=== PATIENT | male | born 1955 | race African-American/Black ===

== ENCOUNTER 2016-11-02 10:12 | Inpatient (IN) | payer OTHER ==
[2016-11-02 11:33] VITALS: BMI 21.3
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
[2016-11-02] MEDS ORDERED: P-EPHED 60MG/TRIPROLIDI 2.5MG TABLET PO PRN (14:25)
[2016-11-02] MEDS ORDERED: ACETAMINOPHEN 325 MG TABLET (FP) PO PRN (14:25)
[2016-11-02] MEDS ORDERED: MENTHOL/PHENOL 1 EACH UD MM PRN (14:25)
[2016-11-02] MEDS ORDERED: MAGNESIUM CITRATE 300 ML BOTTLE PO PRN (14:25)
[2016-11-02] MEDS ORDERED: guaiFENesin/D-METHORPHAN HB 10 ML UNIT-DOSE CUPS PO PRN (14:25)
[2016-11-02] MEDS ORDERED: chlordiazePOXIDE HCL 25 MG CAPSULE PO PRN (14:25)
[2016-11-02] MEDS ORDERED: MAGNESIUM HYDROX 2400MG/30ML ORAL SUSPENSION 30 ML CUP PO PRN (14:25)
[2016-11-02] MEDS ORDERED: diphenhydrAMINE HCL 50 MG CAPSULE PO PRN (14:25)
[2016-11-02] MEDS ORDERED: MAG HYDROX/AL HYDROX/SIMETH 30 ML UNIT-DOSE CUP PO PRN (14:25)
[2016-11-02] MEDS ORDERED: hydrOXYzine PAMOATE 50 MG CAPSULE (FP) PO PRN (14:25)
[2016-11-02] MEDS ORDERED: LOPERAMIDE HCL 2 MG CAPSULE PO PRN (14:25)
[2016-11-02] MEDS ORDERED: ALBUTEROL SO4 6.7 GM HFA INHALER IH PRN (14:28)
[2016-11-02] MEDS ORDERED: LEVOTHYROXINE NA 150 MCG TABLET PO SCH (14:30)
[2016-11-02] MEDS ORDERED: LEVOTHYROXINE 100 MCG, LEVOTHYROXINE 50 MCG PO ONE (15:00)
[2016-11-02] MEDS ORDERED: chlordiazePOXIDE HCL 25 MG CAPSULE PO ONE (15:00)
[2016-11-02] MEDS ORDERED: LEVOTHYROXINE NA 25 MCG TABLET (FP) ONE (16:26)
[2016-11-02] MEDS ORDERED: LEVOTHYROXINE NA 100 MCG TABLET (FP) ONE (16:26)
[2016-11-02] MEDS ORDERED: INSULIN (NOVOLOG) ASPART 100 UNITS/ML 10ML VIAL ONE ×2 (16:26→21:58)
[2016-11-02] MEDS: IBUPROFEN 400 MG TABLET (FP) PO PRN (16:33)
[2016-11-02] MEDS: LIDOCAINE 5% TOPICAL PATCH TP SCH (16:35)
[2016-11-02] MEDS: chlordiazePOXIDE HCL 25 MG CAPSULE PO SCH ×2 (16:38→22:33)
[2016-11-02] MEDS: INSULIN SLIDING SCALE (NOVOLOG) 1 VIAL SQ SCH ×2 (16:41→22:38)
[2016-11-02 17:58] LABS: MCH 26.8 pg (25.7-33.7); MCHC 32.3 g/dl (32.0-35.9); MEAN CELL VOLUME 82.9 fl (80-96); PLATELET COUNT 423 K/MM3 (134-434); WHITE BLOOD COUNT 5.4 K/mm3 (4.0-10.0)
[2016-11-02 18:29] LABS: ALBUMIN 3.9 g/dl (3.4-5.0); ALK PHOS 86 U/L (45-117); ANION GAP 10 (8-16); BILIRUBIN,TOTAL 0.8 mg/dL (0.2-1.0); CALCIUM 9.3 mg/dL (8.5-10.1); CO2 29 mmol/L (21-32); CREATININE 1.1 mg/dL (0.7-1.3); SGOT/AST 9 U/L (15-37); SGPT/ALT 23 U/L (12-78); TOT PROT 7.3 g/dl (6.4-8.2)
[2016-11-02 18:32] LABS: GLUCOSE,RANDOM 463 mg/dL (74-106)
[2016-11-02 22:17] LABS: URINE APPEARANCE CLEAR; URINE BILIRUBIN NEGATIVE (NEGATIVE); URINE BLOOD NEGATIVE (NEGATIVE); URINE COLOR STRAW; URINE GLUCOSE (UA) 3+ (NEGATIVE); URINE KETONE 1+ (NEGATIVE); URINE LEUK ESTERASE NEGATIVE (NEGATIVE); URINE NITRITE NEGATIVE (NEGATIVE); URINE PROTEIN NEGATIVE (NEGATIVE); URINE UROBILINOGEN NEGATIVE mg/dL (0.2-1.0)
[2016-11-02] MEDS: BUDESONIDE/FORMETEROL FUMARATE 80/4.5 mcg INHALER IH SCH (22:32)
[2016-11-02] MEDS: THIAMINE HCL 100 MG TABLET (FP) PO SCH (22:33)
[2016-11-02] MEDS: RANITIDINE HCL 150 MG TABLET (FP) PO SCH (22:33)
[2016-11-02] MEDS: INSULIN DETEMIR 100 UNITS/ML MDV SQ SCH (22:37)
[2016-11-02] MEDS: LIDOCAINE PATCH REMOVAL MC SCH (22:38)
[2016-11-03] MEDS: CYCLOBENZAPRINE HCL 10 MG TABLET (FP) PO PRN (05:58)
[2016-11-03] MEDS: IBUPROFEN 400 MG TABLET (FP) PO PRN (05:58)
[2016-11-03] MEDS: chlordiazePOXIDE HCL 25 MG CAPSULE PO SCH ×4 (05:59→22:05)
[2016-11-03] MEDS ORDERED: LEVOTHYROXINE NA 25 MCG TABLET (FP) ONE (06:11)
[2016-11-03] MEDS ORDERED: LEVOTHYROXINE NA 100 MCG TABLET (FP) ONE (06:11)
[2016-11-03] MEDS: LEVOTHYROXINE 100 MCG, LEVOTHYROXINE 50 MCG PO SCH (06:23)
[2016-11-03] MEDS ORDERED: INSULIN (NOVOLOG) ASPART 100 UNITS/ML 10ML VIAL ONE ×4 (06:27→21:39)
[2016-11-03] MEDS: INSULIN SLIDING SCALE (NOVOLOG) 1 VIAL SQ SCH ×4 (06:33→22:07)
--- NOTE | 2016-11-03 10:46 | EKG ---
Test Reason : Blood Pressure : / mmHG Vent. Rate : 085 BPM Atrial Rate : 085 BPM P-R Int : 152 ms QRS Dur : 110 ms QT Int : 396 ms P-R-T Axes : 066 -69 047 degrees QTc Int : 471 ms NORMAL SINUS RHYTHM LEFT ANTERIOR FASCICULAR BLOCK SEPTAL INFARCT , AGE UNDETERMINED ABNORMAL ECG WHEN COMPARED WITH ECG OF 13-FEB-2016 11:25, SEPTAL INFARCT IS NOW PRESENT Confirmed by TRUDY OROSCO, AZAM ([id number]) on 11/03/2016 10:46:40 AM Referred By: Confirmed By:AZAM YATES MD
[2016-11-03] MEDS: BUDESONIDE/FORMETEROL FUMARATE 80/4.5 mcg INHALER IH SCH ×2 (10:57→21:51)
[2016-11-03] MEDS: PRENATAL VITAMINS W/ FOLIC ACID TABLET (FP) PO SCH (10:57)
[2016-11-03] MEDS: LIDOCAINE 5% TOPICAL PATCH TP SCH (10:57)
[2016-11-03] MEDS: RANITIDINE HCL 150 MG TABLET (FP) PO SCH ×2 (10:57→21:50)
[2016-11-03] MEDS: ALBUTEROL SO4 2.5/IPRATROPIUM 0.5 INH SOL 3 ML VIAL.NEB. NEB SCH ×4 (11:00→22:07)
--- NOTE | 2016-11-03 12:40 | PN ---
[facility] CIWA - CIWA Score Nausea/Vomitin-No Nausea/No Vomiting Muscle Tremors: 4-Moderate,w/Arms Extend Anxiety: 4-Mod. Anxious/Guarded Agitation: 4-Moderately Restless Paroxysmal Sweats: 1-Minimal Palms Moist Orientation: 0-Oriented Tacttile Disturbances: 3-Moderate Itch/Numb/Burn Auditory Disturbances: 0-None Visual Disturbances: 0-None Headache: 0-None Present CIWA-Ar Total Score: 16 S Progress Note (SOAP) Subjective: ANXIETY,SWEATS, BODY ACHES, INTERMITTENT SLEEP. Objective: 11/03/16 12:37 Vital Signs Temperature 98.3 F 11/03/16 09:38 Pulse Rate 84 11/03/16 09:38 Respiratory Rate 18 11/03/16 09:38 Blood Pressure 127/79 11/03/16 09:38 O2 Sat by Pulse Oximetry (%) Laboratory Last Values WBC 5.4 K/mm3 (4.0-10.0) 11/02/16 13:00 RBC 4.61 M/mm3 (4.00-5.60) 11/02/16 13:00 Hgb 12.3 GM/dL (11.7-16.9) 11/02/16 13:00 Hct 38.2 % (35.4-49) 11/02/16 13:00 MCV 82.9 fl (80-96) 11/02/16 13:00 MCH 26.8 pg (25.7-33.7) 11/02/16 13:00 MCHC 32.3 g/dl (32.0-35.9) 11/02/16 13:00 RDW 15.0 % (11.9-15.9) 11/02/16 13:00 Plt Count 423 K/MM3 (134-434) D 11/02/16 13:00 MPV 8.0 fl (7.5-11.1) 11/02/16 13:00 Sodium 138 mmol/L (136-145) 11/02/16 13:00 Potassium 4.5 mmol/L (3.5-5.1) 11/02/16 13:00 Chloride 99 mmol/L (98-107) 11/02/16 13:00 Carbon Dioxide 29 mmol/L (21-32) 11/02/16 13:00 Anion Gap 10 (8-16) 11/02/16 13:00 BUN 14 mg/dL (7-18) 11/02/16 13:00 Creatinine 1.1 mg/dL (0.7-1.3) D 11/02/16 13:00 Creat Clearance w eGFR > 60 (>60) 11/02/16 13:00 POC Glucometer 454 UNITS (()) 11/03/16 12:05 Random Glucose 463 mg/dL (74-106) H* D 11/02/16 13:00 Calcium 9.3 mg/dL (8.5-10.1) 11/02/16 13:00 Total Bilirubin 0.8 mg/dL (0.2-1.0) D 11/02/16 13:00 AST 9 U/L (15-37) L D 11/02/16 13:00 ALT 23 U/L (12-78) D 11/02/16 13:00 Alkaline Phosphatase 86 U/L (45-117) D 11/02/16 13:00 Total Protein 7.3 g/dl (6.4-8.2) 11/02/16 13:00 Albumin 3.9 g/dl (3.4-5.0) 11/02/16 13:00 Urine Color Straw 11/02/16 21:57 Urine Appearance Clear 11/02/16 21:57 Urine pH 5.0 (5.0-8.0) 11/02/16 21:57 Ur Specific [place] <= 1.005 (1.005-1.025) 11/02/16 21:57 Urine Protein Negative (NEGATIVE) 11/02/16 21:57 Urine Glucose (UA) 3+ (NEGATIVE) H 11/02/16 21:57 Urine Ketones 1+ (NEGATIVE) H 11/02/16 21:57 Urine Blood Negative (NEGATIVE) 11/02/16 21:57 Urine Nitrite Negative (NEGATIVE) 11/02/16 21:57 Urine Bilirubin Negative (NEGATIVE) 11/02/16 21:57 Urine Urobilinogen Negative mg/dL (0.2-1.0) 11/02/16 21:57 Ur Leukocyte Esterase Negative (NEGATIVE) 11/02/16 21:57 RPR Titer Nonreactive (NONREACTIVE) 11/02/16 13:00 Assessment: 09/06/17 12:37 WITHDRAWAL SX Plan: CONTINUE DETOX
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
[2016-11-03] MEDS: THIAMINE HCL 100 MG TABLET (FP) PO SCH (21:50)
[2016-11-03] MEDS: MIRTAZAPINE 15 MG TABLET (FP) PO SCH (21:51)
[2016-11-03] MEDS: INSULIN DETEMIR 100 UNITS/ML MDV SQ SCH (22:05)
[2016-11-03] MEDS: LIDOCAINE PATCH REMOVAL MC SCH (22:06)
[2016-11-04] MEDS ORDERED: LEVOTHYROXINE NA 100 MCG TABLET (FP) ONE (03:55)
[2016-11-04] MEDS ORDERED: LEVOTHYROXINE NA 25 MCG TABLET (FP) ONE (03:55)
[2016-11-04] MEDS: IBUPROFEN 400 MG TABLET (FP) PO PRN (06:36)
[2016-11-04] MEDS: chlordiazePOXIDE HCL 25 MG CAPSULE PO SCH ×2 (06:36→10:49)
[2016-11-04] MEDS: CYCLOBENZAPRINE HCL 10 MG TABLET (FP) PO PRN (06:37)
[2016-11-04] MEDS: LEVOTHYROXINE 100 MCG, LEVOTHYROXINE 50 MCG PO SCH (06:37)
[2016-11-04] MEDS ORDERED: INSULIN (NOVOLOG) ASPART 100 UNITS/ML 10ML VIAL ONE ×4 (07:15→21:56)
[2016-11-04] MEDS: INSULIN SLIDING SCALE (NOVOLOG) 1 VIAL SQ SCH ×4 (07:19→22:00)
[2016-11-04] MEDS: BUDESONIDE/FORMETEROL FUMARATE 80/4.5 mcg INHALER IH SCH ×2 (10:48→22:16)
[2016-11-04] MEDS: RANITIDINE HCL 150 MG TABLET (FP) PO SCH ×2 (10:49→22:15)
[2016-11-04] MEDS: PRENATAL VITAMINS W/ FOLIC ACID TABLET (FP) PO SCH (10:49)
[2016-11-04] MEDS: AMMONIUM LACTATE 12% LOTION 225 GM BOTTLE TP SCH (10:50)
[2016-11-04] MEDS: LIDOCAINE 5% TOPICAL PATCH TP SCH (10:50)
[2016-11-04] MEDS: ALBUTEROL SO4 2.5/IPRATROPIUM 0.5 INH SOL 3 ML VIAL.NEB. NEB SCH ×4 (10:51→22:35)
--- NOTE | 2016-11-04 14:35 | PN ---
S CIWA - CIWA Score Nausea/Vomitin Muscle Tremors: 4-Moderate,w/Arms Extend Anxiety: 5 Agitation: 0-Normal Activity Paroxysmal Sweats: 3 Orientation: 2-Disoriented Date<2 days Tacttile Disturbances: 0-None Auditory Disturbances: 2-Mild Harshness/Frighten Visual Disturbances: 0-None Headache: 0-None Present CIWA-Ar Total Score: 19 S Progress Note (SOAP) Subjective: Tremors, Interrupted sleep, Body Aches, Stomach Cramping, Diarrhea, Sweating. Objective: PT. A & O X 2 (DISORIENTED ABOUT DAY / DATE). NO ACUTE DISTRESS. 11/04/16 14:33 Vital Signs Temperature 97.7 F 11/04/16 13:34 Pulse Rate 102 H 11/04/16 13:34 Respiratory Rate 18 11/04/16 13:34 Blood Pressure 128/80 11/04/16 13:34 O2 Sat by Pulse Oximetry (%) Laboratory Tests 11/02/16 11/02/16 11/02/16 11:04 13:00 13:00 WBC 5.4 RBC 4.61 Hgb 12.3 Hct 38.2 MCV 82.9 MCH 26.8 MCHC 32.3 RDW 15.0 Plt Count 423 D MPV 8.0 Sodium 138 Potassium 4.5 Chloride 99 Carbon Dioxide 29 Anion Gap 10 BUN 14 Creatinine 1.1 D Creat Clearance w eGFR > 60 POC Glucometer 472 Random Glucose 463 H* D Calcium 9.3 Total Bilirubin 0.8 D AST 9 L D ALT 23 D Alkaline Phosphatase 86 D Total Protein 7.3 Albumin 3.9 Urine Color Urine Appearance Urine pH Ur Specific [place] Urine Protein Urine Glucose (UA) Urine Ketones Urine Blood Urine Nitrite Urine Bilirubin Urine Urobilinogen Ur Leukocyte Esterase RPR Titer 11/02/16 11/02/16 11/02/16 13:00 16:17 21:44 WBC RBC Hgb Hct MCV MCH MCHC RDW Plt Count MPV Sodium Potassium Chloride Carbon Dioxide Anion Gap BUN Creatinine Creat Clearance w eGFR POC Glucometer 450 420 Random Glucose Calcium Total Bilirubin AST ALT Alkaline Phosphatase Total Protein Albumin Urine Color Urine Appearance Urine pH Ur Specific [place] Urine Protein Urine Glucose (UA) Urine Ketones Urine Blood Urine Nitrite Urine Bilirubin Urine Urobilinogen Ur Leukocyte Esterase RPR Titer Nonreactive 11/02/16 11/03/16 11/03/16 21:57 06:01 12:05 WBC RBC Hgb Hct MCV MCH MCHC RDW Plt Count MPV Sodium Potassium Chloride Carbon Dioxide Anion Gap BUN Creatinine Creat Clearance w eGFR POC Glucometer 235 454 Random Glucose Calcium Total Bilirubin AST ALT Alkaline Phosphatase Total Protein Albumin Urine Color Straw Urine Appearance Clear Urine pH 5.0 Ur Specific [place] <= 1.005 Urine Protein Negative Urine Glucose (UA) 3+ H Urine Ketones 1+ H Urine Blood Negative Urine Nitrite Negative Urine Bilirubin Negative Urine Urobilinogen Negative Ur Leukocyte Esterase Negative RPR Titer 11/03/16 11/03/16 11/04/16 16:24 21:05 06:54 WBC RBC Hgb Hct MCV MCH MCHC RDW Plt Count MPV Sodium Potassium Chloride Carbon Dioxide Anion Gap BUN Creatinine Creat Clearance w eGFR POC Glucometer 363 333 448 Random Glucose Calcium Total Bilirubin AST ALT Alkaline Phosphatase Total Protein Albumin Urine Color Urine Appearance Urine pH Ur Specific [place] Urine Protein Urine Glucose (UA) Urine Ketones Urine Blood Urine Nitrite Urine Bilirubin Urine Urobilinogen Ur Leukocyte Esterase RPR Titer 11/04/16 11:02 WBC RBC Hgb Hct MCV MCH MCHC RDW Plt Count MPV Sodium Potassium Chloride Carbon Dioxide Anion Gap BUN Creatinine Creat Clearance w eGFR POC Glucometer 403 Random Glucose Calcium Total Bilirubin AST ALT Alkaline Phosphatase Total Protein Albumin Urine Color Urine Appearance Urine pH Ur Specific [place] Urine Protein Urine Glucose (UA) Urine Ketones Urine Blood Urine Nitrite Urine Bilirubin Urine Urobilinogen Ur Leukocyte Esterase RPR Titer LABS NOTED. Assessment: 11/04/16 14:34 WITHDRAWAL SYMPTOMS. Plan: CONTINUE DETOX. INCREASE DAILY PO FLUID INTAKE. ENCOURAGED PATIENT TO BE VIGILANT REGARDING DAILY CARBOHYDRATE / SUGAR INTAKE.
[2016-11-04] MEDS: chlordiazePOXIDE 5 MG CAPSULE PO SCH ×2 (17:55→23:14)
[2016-11-04] MEDS: INSULIN DETEMIR 100 UNITS/ML MDV SQ SCH (22:00)
[2016-11-04] MEDS: THIAMINE HCL 100 MG TABLET (FP) PO SCH (22:13)
[2016-11-04] MEDS: MIRTAZAPINE 15 MG TABLET (FP) PO SCH (22:15)
[2016-11-04] MEDS: LIDOCAINE PATCH REMOVAL MC SCH (22:35)
[2016-11-05] MEDS ORDERED: LEVOTHYROXINE NA 25 MCG TABLET (FP) ONE (05:24)
[2016-11-05] MEDS ORDERED: LEVOTHYROXINE NA 100 MCG TABLET (FP) ONE (05:24)
[2016-11-05] MEDS: chlordiazePOXIDE 5 MG CAPSULE PO SCH ×2 (06:14→10:56)
[2016-11-05] MEDS: LEVOTHYROXINE 100 MCG, LEVOTHYROXINE 50 MCG PO SCH (06:16)
[2016-11-05] MEDS: INSULIN SLIDING SCALE (NOVOLOG) 1 VIAL SQ SCH ×4 (07:10→21:05)
[2016-11-05] MEDS ORDERED: INSULIN (NOVOLOG) ASPART 100 UNITS/ML 10ML VIAL ONE ×4 (07:10→21:00)
[2016-11-05] MEDS: RANITIDINE HCL 150 MG TABLET (FP) PO SCH ×2 (10:56→23:22)
[2016-11-05] MEDS: BUDESONIDE/FORMETEROL FUMARATE 80/4.5 mcg INHALER IH SCH ×2 (10:56→23:22)
[2016-11-05] MEDS: PRENATAL VITAMINS W/ FOLIC ACID TABLET (FP) PO SCH (10:56)
[2016-11-05] MEDS: LIDOCAINE 5% TOPICAL PATCH TP SCH (10:57)
[2016-11-05] MEDS: AMMONIUM LACTATE 12% LOTION 225 GM BOTTLE TP SCH (10:57)
[2016-11-05] MEDS: ALBUTEROL SO4 2.5/IPRATROPIUM 0.5 INH SOL 3 ML VIAL.NEB. NEB SCH ×4 (10:57→23:19)
--- NOTE | 2016-11-05 13:11 | PN ---
[facility] Progress Note (SOAP) Subjective: Interrupted sleep, Nausea, Stomach cramping, Tremors, Sweating, Body Aches. Objective: PT. A & O X 1 (DISORIENTED ABOUT DAY /DATE AND ABOUT CURRENT LOCATION). PT. OBSERVED AMBULATING ON UNIT. NO ACUTE DISTRESS. 11/05/16 13:12 Vital Signs Temperature 98.1 F 11/05/16 11:15 Pulse Rate 78 11/05/16 11:15 Respiratory Rate 18 11/05/16 11:15 Blood Pressure 126/84 11/05/16 11:15 O2 Sat by Pulse Oximetry (%) Laboratory Tests 11/02/16 11/02/16 11/02/16 11:04 13:00 13:00 WBC 5.4 RBC 4.61 Hgb 12.3 Hct 38.2 MCV 82.9 MCH 26.8 MCHC 32.3 RDW 15.0 Plt Count 423 D MPV 8.0 Sodium 138 Potassium 4.5 Chloride 99 Carbon Dioxide 29 Anion Gap 10 BUN 14 Creatinine 1.1 D Creat Clearance w eGFR > 60 POC Glucometer 472 Random Glucose 463 H* D Calcium 9.3 Total Bilirubin 0.8 D AST 9 L D ALT 23 D Alkaline Phosphatase 86 D Total Protein 7.3 Albumin 3.9 Urine Color Urine Appearance Urine pH Ur Specific [place] Urine Protein Urine Glucose (UA) Urine Ketones Urine Blood Urine Nitrite Urine Bilirubin Urine Urobilinogen Ur Leukocyte Esterase RPR Titer 11/02/16 11/02/16 11/02/16 13:00 16:17 21:44 WBC RBC Hgb Hct MCV MCH MCHC RDW Plt Count MPV Sodium Potassium Chloride Carbon Dioxide Anion Gap BUN Creatinine Creat Clearance w eGFR POC Glucometer 450 420 Random Glucose Calcium Total Bilirubin AST ALT Alkaline Phosphatase Total Protein Albumin Urine Color Urine Appearance Urine pH Ur Specific [place] Urine Protein Urine Glucose (UA) Urine Ketones Urine Blood Urine Nitrite Urine Bilirubin Urine Urobilinogen Ur Leukocyte Esterase RPR Titer Nonreactive 11/02/16 11/03/16 11/03/16 21:57 06:01 12:05 WBC RBC Hgb Hct MCV MCH MCHC RDW Plt Count MPV Sodium Potassium Chloride Carbon Dioxide Anion Gap BUN Creatinine Creat Clearance w eGFR POC Glucometer 235 454 Random Glucose Calcium Total Bilirubin AST ALT Alkaline Phosphatase Total Protein Albumin Urine Color Straw Urine Appearance Clear Urine pH 5.0 Ur Specific [place] <= 1.005 Urine Protein Negative Urine Glucose (UA) 3+ H Urine Ketones 1+ H Urine Blood Negative Urine Nitrite Negative Urine Bilirubin Negative Urine Urobilinogen Negative Ur Leukocyte Esterase Negative RPR Titer 11/03/16 11/03/16 11/04/16 16:24 21:05 06:54 WBC RBC Hgb Hct MCV MCH MCHC RDW Plt Count MPV Sodium Potassium Chloride Carbon Dioxide Anion Gap BUN Creatinine Creat Clearance w eGFR POC Glucometer 363 333 448 Random Glucose Calcium Total Bilirubin AST ALT Alkaline Phosphatase Total Protein Albumin Urine Color Urine Appearance Urine pH Ur Specific [place] Urine Protein Urine Glucose (UA) Urine Ketones Urine Blood Urine Nitrite Urine Bilirubin Urine Urobilinogen Ur Leukocyte Esterase RPR Titer 11/04/16 11/04/16 11/05/16 11:02 16:32 06:32 WBC RBC Hgb Hct MCV MCH MCHC RDW Plt Count MPV Sodium Potassium Chloride Carbon Dioxide Anion Gap BUN Creatinine Creat Clearance w eGFR POC Glucometer 403 284 356 Random Glucose Calcium Total Bilirubin AST ALT Alkaline Phosphatase Total Protein Albumin Urine Color Urine Appearance Urine pH Ur Specific [place] Urine Protein Urine Glucose (UA) Urine Ketones Urine Blood Urine Nitrite Urine Bilirubin Urine Urobilinogen Ur Leukocyte Esterase RPR Titer 11/05/16 11:32 WBC RBC Hgb Hct MCV MCH MCHC RDW Plt Count MPV Sodium Potassium Chloride Carbon Dioxide Anion Gap BUN Creatinine Creat Clearance w eGFR POC Glucometer 448 Random Glucose Calcium Total Bilirubin AST ALT Alkaline Phosphatase Total Protein Albumin Urine Color Urine Appearance Urine pH Ur Specific [place] Urine Protein Urine Glucose (UA) Urine Ketones Urine Blood Urine Nitrite Urine Bilirubin Urine Urobilinogen Ur Leukocyte Esterase RPR Titer LABS NOTED. Assessment: 11/05/16 13:13 WITHDRAWAL SYMPTOMS. Plan: CONTINUE DETOX.
[2016-11-05] MEDS: chlordiazePOXIDE HCL 10 MG CAPSULE PO SCH ×2 (17:16→23:25)
[2016-11-05] MEDS: INSULIN DETEMIR 100 UNITS/ML MDV SQ SCH (21:06)
[2016-11-05] MEDS: THIAMINE HCL 100 MG TABLET (FP) PO SCH (23:22)
[2016-11-05] MEDS: MIRTAZAPINE 15 MG TABLET (FP) PO SCH (23:23)
[2016-11-05] MEDS: LIDOCAINE PATCH REMOVAL MC SCH (23:25)
[2016-11-06] MEDS ORDERED: LEVOTHYROXINE NA 25 MCG TABLET (FP) ONE (04:53)
[2016-11-06] MEDS ORDERED: LEVOTHYROXINE NA 100 MCG TABLET (FP) ONE (04:53)
[2016-11-06] MEDS ORDERED: INSULIN (NOVOLOG) ASPART 100 UNITS/ML 10ML VIAL ONE (06:38)
[2016-11-06] MEDS: LEVOTHYROXINE 100 MCG, LEVOTHYROXINE 50 MCG PO SCH (06:41)
[2016-11-06] MEDS: chlordiazePOXIDE HCL 10 MG CAPSULE PO SCH (06:41)
[2016-11-06] MEDS: INSULIN SLIDING SCALE (NOVOLOG) 1 VIAL SQ SCH (06:41)
[2016-11-06 07:08] VITALS: BP 122/76; PULSE 96; TEMP 97.3
[2016-11-06] MEDS: RANITIDINE HCL 150 MG TABLET (FP) PO SCH (09:33)
[2016-11-06] MEDS: PRENATAL VITAMINS W/ FOLIC ACID TABLET (FP) PO SCH (09:33)
[2016-11-06] MEDS: ALBUTEROL SO4 2.5/IPRATROPIUM 0.5 INH SOL 3 ML VIAL.NEB. NEB SCH (09:33)
[2016-11-06] MEDS: LIDOCAINE 5% TOPICAL PATCH TP SCH (09:33)
[2016-11-06] MEDS: BUDESONIDE/FORMETEROL FUMARATE 80/4.5 mcg INHALER IH SCH (09:33)
[2016-11-06] MEDS: AMMONIUM LACTATE 12% LOTION 225 GM BOTTLE TP SCH (09:33)
--- NOTE | 2016-11-07 | DS ---
[facility] Detox Discharge Summary Admission Date: 11/02/16 Discharge Date: 11/06/16 - History Present History: Alcohol Dependence, Cocaine Dependence Additional Comments: PATIENT WILL APPLY FOR ADMISSION TO [facility] ON TUESDAY (11/08/2016). PATIENT ADVISED TO CONSIDER STAYING AT [facility], [facility] ([place], [place]) TONIGHT AND TOMORROW NIGHT (11/06/2016 and 11/2016) UNTIL ABLE TO GO ON TO BE ADMITTED TO [facility]. PATIENT WAS DISCHARGED FROM DETOX UNIT IN STABLE MEDICAL CONDITION. Pertinent Past History: Hypothyroidism, History of Anemia, IDDM, Sciatica, Asthma, Insomnia, Chronic Low Back Pain. - Physical Exam Results Vital Signs: Vital Signs Temperature 97.3 F L 11/06/16 06:00 Pulse Rate 96 H 11/06/16 06:00 Respiratory Rate 18 11/06/16 06:00 Blood Pressure 122/76 11/06/16 06:00 O2 Sat by Pulse Oximetry (%) Pertinent Admission Physical Exam Findings: WITHDRAWAL SYMPTOMS. Laboratory Tests 11/02/16 11/02/16 11/02/16 11:04 13:00 13:00 WBC 5.4 RBC 4.61 Hgb 12.3 Hct 38.2 MCV 82.9 MCH 26.8 MCHC 32.3 RDW 15.0 Plt Count 423 D MPV 8.0 Sodium 138 Potassium 4.5 Chloride 99 Carbon Dioxide 29 Anion Gap 10 BUN 14 Creatinine 1.1 D Creat Clearance w eGFR > 60 POC Glucometer 472 Random Glucose 463 H* D Calcium 9.3 Total Bilirubin 0.8 D AST 9 L D ALT 23 D Alkaline Phosphatase 86 D Total Protein 7.3 Albumin 3.9 Urine Color Urine Appearance Urine pH Ur Specific [place] Urine Protein Urine Glucose (UA) Urine Ketones Urine Blood Urine Nitrite Urine Bilirubin Urine Urobilinogen Ur Leukocyte Esterase RPR Titer 11/02/16 11/02/16 11/02/16 13:00 16:17 21:44 WBC RBC Hgb Hct MCV MCH MCHC RDW Plt Count MPV Sodium Potassium Chloride Carbon Dioxide Anion Gap BUN Creatinine Creat Clearance w eGFR POC Glucometer 450 420 Random Glucose Calcium Total Bilirubin AST ALT Alkaline Phosphatase Total Protein Albumin Urine Color Urine Appearance Urine pH Ur Specific [place] Urine Protein Urine Glucose (UA) Urine Ketones Urine Blood Urine Nitrite Urine Bilirubin Urine Urobilinogen Ur Leukocyte Esterase RPR Titer Nonreactive 11/02/16 11/03/16 11/03/16 21:57 06:01 12:05 WBC RBC Hgb Hct MCV MCH MCHC RDW Plt Count MPV Sodium Potassium Chloride Carbon Dioxide Anion Gap BUN Creatinine Creat Clearance w eGFR POC Glucometer 235 454 Random Glucose Calcium Total Bilirubin AST ALT Alkaline Phosphatase Total Protein Albumin Urine Color Straw Urine Appearance Clear Urine pH 5.0 Ur Specific [place] <= 1.005 Urine Protein Negative Urine Glucose (UA) 3+ H Urine Ketones 1+ H Urine Blood Negative Urine Nitrite Negative Urine Bilirubin Negative Urine Urobilinogen Negative Ur Leukocyte Esterase Negative RPR Titer 11/03/16 11/03/16 11/04/16 16:24 21:05 06:54 WBC RBC Hgb Hct MCV MCH MCHC RDW Plt Count MPV Sodium Potassium Chloride Carbon Dioxide Anion Gap BUN Creatinine Creat Clearance w eGFR POC Glucometer 363 333 448 Random Glucose Calcium Total Bilirubin AST ALT Alkaline Phosphatase Total Protein Albumin Urine Color Urine Appearance Urine pH Ur Specific [place] Urine Protein Urine Glucose (UA) Urine Ketones Urine Blood Urine Nitrite Urine Bilirubin Urine Urobilinogen Ur Leukocyte Esterase RPR Titer 11/04/16 11/04/16 11/05/16 11:02 16:32 06:32 WBC RBC Hgb Hct MCV MCH MCHC RDW Plt Count MPV Sodium Potassium Chloride Carbon Dioxide Anion Gap BUN Creatinine Creat Clearance w eGFR POC Glucometer 403 284 356 Random Glucose Calcium Total Bilirubin AST ALT Alkaline Phosphatase Total Protein Albumin Urine Color Urine Appearance Urine pH Ur Specific [place] Urine Protein Urine Glucose (UA) Urine Ketones Urine Blood Urine Nitrite Urine Bilirubin Urine Urobilinogen Ur Leukocyte Esterase RPR Titer 11/05/16 11/05/16 11/06/16 11:32 16:37 06:36 WBC RBC Hgb Hct MCV MCH MCHC RDW Plt Count MPV Sodium Potassium Chloride Carbon Dioxide Anion Gap BUN Creatinine Creat Clearance w eGFR POC Glucometer 448 377 398 Random Glucose Calcium Total Bilirubin AST ALT Alkaline Phosphatase Total Protein Albumin Urine Color Urine Appearance Urine pH Ur Specific [place] Urine Protein Urine Glucose (UA) Urine Ketones Urine Blood Urine Nitrite Urine Bilirubin Urine Urobilinogen Ur Leukocyte Esterase RPR Titer LABS NOTED. - Treatment Hospital Course: Detox Protocol Followed, Detoxed Safely, Responded well, Discharged Condition Good Patient has Accepted a Rehab Referral to: PT. WILL GO TO [facility] FOR AFTERCARE. - Medication Discharge Medications: Ambulatory Orders Albuterol Sulfate Inhaler - [Ventolin HFA Inhaler -] 2 inh PO Q4H PRN 02/09/16 Levothyroxine [Synthroid -] 150 mcg PO DAILY 02/09/16 Insulin (Novolog) [Novolog Flexpen] 10 units SQ AC 11/02/16 Insulin Glargine,Hum.rec.anlog [Lantus Solostar PEN (NF)] 24 units SQ HS Ranitidine HCl [Zantac] 150 mg PO BID 11/02/16 Mirtazapine [Remeron -] 15 mg PO HS #30 tablet 11/03/16 - Diagnosis (1) Alcohol dependence with uncomplicated withdrawal Status: Acute (2) Cocaine dependence, uncomplicated Status: Acute (3) Insomnia Status: Acute Qualifiers: Insomnia type: unspecified Qualified Code(s): G47.00 - Insomnia, unspecified (4) Nicotine dependence Status: Chronic Qualifiers: Nicotine product type: cigarettes Substance use status: uncomplicated Qualified Code(s): F17.210 - Nicotine dependence, cigarettes, uncomplicated (5) RUQ abdominal pain Status: Acute (6) Substance induced mood disorder Status: Acute (7) Asthma Status: Chronic Qualifiers: Asthma severity: mild intermittent Asthma complication type: uncomplicated Qualified Code(s): J45.20 - Mild intermittent asthma, uncomplicated (8) COPD (chronic obstructive pulmonary disease) Status: Chronic Qualifiers: COPD type: unspecified COPD Qualified Code(s): J44.9 - Chronic obstructive pulmonary disease, unspecified (9) Chronic lower back pain Status: Chronic Qualifiers: Back pain laterality: bilateral Sciatica presence: with sciatica Sciatica laterality: sciatica of right side Qualified Code(s): M54.41 - Lumbago with sciatica, right side; G89.29 - Other chronic pain (10) Diabetes mellitus Status: Chronic Qualifiers: Diabetes mellitus type: type 2 Diabetes mellitus complication status: without complication (11) Dry skin Status: Chronic (12) Hypothyroidism Status: Chronic Qualifiers: Hypothyroidism type: acquired Qualified Code(s): E03.9 - Hypothyroidism, unspecified (13) Sciatica Status: Chronic Qualifiers: Laterality: right Qualified Code(s): M54.31 - Sciatica, right side - AMA Did Patient Leave Against Medical Advice: No
== END 2016-11-06 09:35 | disposition home or self-care (01) | DRG 774 ==
LOC: YASAS 10:12 → Y3N 14:06
PROVIDERS: ADMIT Internal Medicine Addiction Medicine; ATTEND Internal Medicine Addiction Medicine
PROC: HZ2ZZZZ Detoxification Services for Substance Abuse Treatment (ICD-10-PCS; principal; 2016-11-02)
DX: F10.230 Alcohol dependence with withdrawal, uncomplicated (principal); F14.20 Cocaine dependence, uncomplicated; F17.210 Nicotine dependence, cigarettes, uncomplicated; F19.24 Other psychoactive substance dependence with psychoactive substance-induced mood disorder; G47.00 Insomnia, unspecified; J45.20 Mild intermittent asthma, uncomplicated; J44.9 Chronic obstructive pulmonary disease, unspecified; M54.41 Lumbago with sciatica, right side; G89.29 Other chronic pain; E11.9 Type 2 diabetes mellitus without complications; L98.8 Other specified disorders of the skin and subcutaneous tissue; E03.9 Hypothyroidism, unspecified; I69.344 Monoplegia of lower limb following cerebral infarction affecting left non-dominant side; R26.81 Unsteadiness on feet; Z87.828 Personal history of other (healed) physical injury and trauma; Z86.39 Personal history of other endocrine, nutritional and metabolic disease; Z86.2 Personal history of diseases of the blood and blood-forming organs and certain disorders involving the immune mechanism; Z79.4 Long term (current) use of insulin; Z91.5 Personal history of self-harm; R10.11 Right upper quadrant pain
CPT/HCPCS: 36415; 80053; 81003; 85027; 86593; 93005; 93010

== ENCOUNTER 2022-04-07 10:23 | Inpatient (IN) | payer OTHER ==
[2022-04-07] MEDS ORDERED: hydrOXYzine PAMOATE 25 MG CAPSULE (FP) PO PRN (13:28)
[2022-04-07] MEDS ORDERED: ACETAMINOPHEN 325 MG TABLET (FP) PO PRN (13:28)
[2022-04-07] MEDS ORDERED: POLYETHYLENE GLYCOL (HEALTHYLAX) 3350 17 GM PACKET PO PRN (13:28)
[2022-04-07] MEDS ORDERED: BENZOCAINE/MENTHOL (CHLORASEPTIC ) LOZENGE MM PRN (13:28)
[2022-04-07] MEDS ORDERED: guaiFENesin 200 MG/10 ML 10 ML UNIT-DOSE CUPS PO PRN (13:28)
[2022-04-07] MEDS ORDERED: MAGNESIUM HYDROX 2400MG/30ML ORAL SUSPENSION 30 ML CUP PO PRN (13:28)
[2022-04-07] MEDS ORDERED: P-EPHED 60MG/TRIPROLIDI 2.5MG TABLET PO PRN (13:28)
[2022-04-07] MEDS ORDERED: NICOTINE 10 MG CARTRIDGE (INHALER) IH PRN (13:28)
[2022-04-07] MEDS ORDERED: LOPERAMIDE HCL 2 MG CAPSULE PO PRN (13:28)
[2022-04-07] MEDS ORDERED: ALBUTEROL SO4 HFA INHALER IH PRN (13:31)
[2022-04-07] MEDS ORDERED: LEVOTHYROXINE NA 150 MCG TABLET PO SCH (13:45)
[2022-04-07] MEDS ORDERED: INSULIN (NOVOLOG) ASPART 100 UNITS/ML 10ML VIAL ONE ×2 (13:48→21:41)
[2022-04-07] MEDS: PRENATAL VITAMINS W/ FOLIC ACID TABLET (FP) PO SCH (14:42)
[2022-04-07] MEDS ORDERED: INSULIN (NOVOLOG) ASPART 100 UNITS/ML 10ML VIAL SQ ONE (15:19)
[2022-04-07] MEDS ORDERED: INSULIN (NOVOLOG) ASPART 100 UNITS/ML 10ML VIAL SQ SCH (16:30)
[2022-04-07] MEDS: LEVOTHYROXINE 100 MCG, LEVOTHYROXINE 50 MCG PO SCH (16:45)
[2022-04-07] MEDS: FAMOTIDINE 20 MG TABLET PO SCH ×2 (16:47→21:11)
[2022-04-07] MEDS: NICOTINE 7 MG/24 HOURS TOPICAL PATCH TD SCH (16:47)
[2022-04-07] MEDS: THIAMINE HCL 100 MG TABLET (FP) PO SCH (21:10)
[2022-04-07] MEDS: MELATONIN 5 MG TABLETS PO SCH (21:10)
[2022-04-07] MEDS ORDERED: INSULIN (LEVEMIR) 100 UNITS/ML UNITS SQ SCH (22:00)
[2022-04-08] MEDS: INSULIN SLIDING SCALE (NOVOLOG) 1 VIAL SQ SCH ×3 (07:22→17:25)
[2022-04-08] MEDS: LEVOTHYROXINE 100 MCG, LEVOTHYROXINE 50 MCG PO SCH (07:22)
[2022-04-08] MEDS: FAMOTIDINE 20 MG TABLET PO SCH ×2 (10:54→22:43)
[2022-04-08] MEDS: NICOTINE 7 MG/24 HOURS TOPICAL PATCH TD SCH (10:58)
[2022-04-08] MEDS: PRENATAL VITAMINS W/ FOLIC ACID TABLET (FP) PO SCH (10:58)
[2022-04-08 12:17] LABS: PH,URINE 5.5 (5.0-8.0); URINE APPEARANCE CLEAR; URINE BILIRUBIN NEGATIVE (NEGATIVE); URINE COLOR YELLOW; URINE GLUCOSE (UA) TRACE (NEGATIVE); URINE KETONE NEGATIVE (NEGATIVE); URINE LEUK ESTERASE NEGATIVE (NEGATIVE); URINE NITRITE NEGATIVE (NEGATIVE); URINE PROTEIN NEGATIVE (NEGATIVE); URINE UROBILINOGEN 0.2 mg/dL (0.2-1.0)
[2022-04-08 12:25] LABS: HEMATOCRIT 29.4 % (35.4-49); HEMOGLOBIN 9.8 GM/dL (11.7-16.9); MCH 27.4 pg (25.7-33.7); MCHC 33.3 g/dl (32.0-35.9); MEAN CELL VOLUME 82.4 fl (80-96); MEAN PLT VOLUME 7.9 fl (7.5-11.1); PLATELET COUNT 337 10^3/uL (134-434); RBC 3.57 M/mm3 (4.00-5.60); RDW 17.3 % (11.9-15.9); WHITE BLOOD COUNT 5.8 K/mm3 (4.0-10.0)
[2022-04-08] MEDS ORDERED: INSULIN SLIDING SCALE (NOVOLOG) 1 VIAL SQ ONE (12:27)
[2022-04-08 12:37] LABS: CALCIUM 8.8 mg/dL (8.5-10.1)
[2022-04-08 12:38] LABS: ALBUMIN 3.1 g/dl (3.4-5.0); BLOOD UREA NITROGEN 12.3 mg/dL (7-18); TOT PROT 6.1 g/dl (6.4-8.2)
[2022-04-08 12:39] LABS: CREATININE 0.9 mg/dL (0.55-1.3)
[2022-04-08 12:40] LABS: BILIRUBIN,TOTAL 0.7 mg/dL (0.2-1)
[2022-04-08] MEDS: MELATONIN 5 MG TABLETS PO SCH (22:43)
[2022-04-08] MEDS: MIRTAZAPINE 15 MG TABLET (FP) PO SCH (22:43)
[2022-04-08] MEDS: THIAMINE HCL 100 MG TABLET (FP) PO SCH (22:43)
[2022-04-08] MEDS: INSULIN (LEVEMIR) 100 UNITS/ML UNITS SQ SCH (22:47)
[2022-04-09] MEDS: LEVOTHYROXINE 100 MCG, LEVOTHYROXINE 50 MCG PO SCH (06:35)
[2022-04-09] MEDS: INSULIN SLIDING SCALE (NOVOLOG) 1 VIAL SQ SCH ×3 (08:03→16:55)
[2022-04-09] MEDS ORDERED: SYNTHROID 175 MCG PO SCH (10:00)
[2022-04-09] MEDS: PRENATAL VITAMINS W/ FOLIC ACID TABLET (FP) PO SCH (10:32)
[2022-04-09] MEDS: NICOTINE 7 MG/24 HOURS TOPICAL PATCH TD SCH (10:32)
[2022-04-09] MEDS: FAMOTIDINE 20 MG TABLET PO SCH ×2 (10:33→21:22)
[2022-04-09] MEDS: amLODIPine BESYLATE 10 MG TABLET (FP) PO SCH (10:34)
[2022-04-09] MEDS: GABAPENTIN 100 MG CAPSULE PO SCH ×2 (13:32→21:22)
[2022-04-09 21:01] LABS: SYPHILIS W/ RPR CONF NON-REACTIVE (NONREACTIVE)
[2022-04-09] MEDS: MIRTAZAPINE 15 MG TABLET (FP) PO SCH (21:22)
[2022-04-09] MEDS: THIAMINE HCL 100 MG TABLET (FP) PO SCH (21:22)
[2022-04-09] MEDS: MELATONIN 5 MG TABLETS PO SCH (21:22)
[2022-04-09] MEDS: ATORVASTATIN CA 80 MG TABLET (FP) PO SCH (21:23)
[2022-04-09] MEDS ORDERED: ATORVASTATIN CA 40 MG TABLET (FP) ONE (21:23)
[2022-04-09] MEDS: INSULIN (LEVEMIR) 100 UNITS/ML UNITS SQ SCH (21:24)
[2022-04-10] MEDS: GABAPENTIN 100 MG CAPSULE PO SCH ×3 (06:43→21:16)
[2022-04-10] MEDS: LEVOTHYROXINE 100 MCG, LEVOTHYROXINE 75 MCG PO SCH (06:43)
[2022-04-10] MEDS ORDERED: LEVOTHYROXINE NA 50 MCG TABLET (FP) PO SCH (07:00)
[2022-04-10] MEDS: INSULIN SLIDING SCALE (NOVOLOG) 1 VIAL SQ SCH ×3 (07:08→16:58)
[2022-04-10] MEDS: FAMOTIDINE 20 MG TABLET PO SCH ×2 (10:06→21:16)
[2022-04-10] MEDS: amLODIPine BESYLATE 10 MG TABLET (FP) PO SCH (10:06)
[2022-04-10] MEDS: NICOTINE 7 MG/24 HOURS TOPICAL PATCH TD SCH (10:06)
[2022-04-10] MEDS: PRENATAL VITAMINS W/ FOLIC ACID TABLET (FP) PO SCH (10:06)
[2022-04-10] MEDS ORDERED: ATORVASTATIN CA 40 MG TABLET (FP) ONE (18:32)
[2022-04-10] MEDS: INSULIN (LEVEMIR) 100 UNITS/ML UNITS SQ SCH (21:16)
[2022-04-10] MEDS: THIAMINE HCL 100 MG TABLET (FP) PO SCH (21:16)
[2022-04-10] MEDS: MELATONIN 5 MG TABLETS PO SCH (21:16)
[2022-04-10] MEDS: ATORVASTATIN CA 80 MG TABLET (FP) PO SCH (21:16)
[2022-04-10] MEDS: MIRTAZAPINE 15 MG TABLET (FP) PO SCH (21:16)
[2022-04-11] MEDS: GABAPENTIN 100 MG CAPSULE PO SCH ×3 (06:34→21:09)
[2022-04-11] MEDS: LEVOTHYROXINE 100 MCG, LEVOTHYROXINE 75 MCG PO SCH (06:34)
[2022-04-11] MEDS: INSULIN SLIDING SCALE (NOVOLOG) 1 VIAL SQ SCH ×3 (07:05→17:00)
[2022-04-11] MEDS: amLODIPine BESYLATE 10 MG TABLET (FP) PO SCH (09:56)
[2022-04-11] MEDS: PRENATAL VITAMINS W/ FOLIC ACID TABLET (FP) PO SCH (09:56)
[2022-04-11] MEDS: FAMOTIDINE 20 MG TABLET PO SCH ×2 (09:56→22:28)
[2022-04-11] MEDS: NICOTINE 7 MG/24 HOURS TOPICAL PATCH TD SCH (09:56)
[2022-04-11] MEDS: ATORVASTATIN CA 80 MG TABLET (FP) PO SCH (21:09)
[2022-04-11] MEDS: INSULIN (LEVEMIR) 100 UNITS/ML UNITS SQ SCH (21:09)
[2022-04-11] MEDS: THIAMINE HCL 100 MG TABLET (FP) PO SCH (21:09)
[2022-04-11] MEDS: MELATONIN 5 MG TABLETS PO SCH (21:09)
[2022-04-11] MEDS: MIRTAZAPINE 15 MG TABLET (FP) PO SCH (21:09)
[2022-04-12] MEDS: LEVOTHYROXINE 100 MCG, LEVOTHYROXINE 75 MCG PO SCH (06:34)
[2022-04-12] MEDS: GABAPENTIN 100 MG CAPSULE PO SCH ×3 (06:34→21:02)
[2022-04-12] MEDS: INSULIN SLIDING SCALE (NOVOLOG) 1 VIAL SQ SCH ×3 (07:39→17:09)
[2022-04-12] MEDS: FAMOTIDINE 20 MG TABLET PO SCH ×2 (10:43→21:02)
[2022-04-12] MEDS: amLODIPine BESYLATE 10 MG TABLET (FP) PO SCH (10:43)
[2022-04-12] MEDS: NICOTINE 7 MG/24 HOURS TOPICAL PATCH TD SCH (10:43)
[2022-04-12] MEDS: PRENATAL VITAMINS W/ FOLIC ACID TABLET (FP) PO SCH (10:43)
[2022-04-12] MEDS ORDERED: ATORVASTATIN CA 40 MG TABLET (FP) ONE (18:54)
[2022-04-12] MEDS: THIAMINE HCL 100 MG TABLET (FP) PO SCH (21:03)
[2022-04-12] MEDS: INSULIN (LEVEMIR) 100 UNITS/ML UNITS SQ SCH (21:03)
[2022-04-12] MEDS: MIRTAZAPINE 15 MG TABLET (FP) PO SCH (21:03)
[2022-04-12] MEDS: ATORVASTATIN CA 80 MG TABLET (FP) PO SCH (21:03)
[2022-04-12] MEDS: MELATONIN 5 MG TABLETS PO SCH (21:03)
[2022-04-13] MEDS: LEVOTHYROXINE 100 MCG, LEVOTHYROXINE 75 MCG PO SCH (06:30)
[2022-04-13] MEDS: GABAPENTIN 100 MG CAPSULE PO SCH ×3 (06:30→21:09)
[2022-04-13] MEDS: INSULIN SLIDING SCALE (NOVOLOG) 1 VIAL SQ SCH ×3 (06:53→17:22)
[2022-04-13] MEDS: amLODIPine BESYLATE 10 MG TABLET (FP) PO SCH (10:01)
[2022-04-13] MEDS: FAMOTIDINE 20 MG TABLET PO SCH ×2 (10:01→21:09)
[2022-04-13] MEDS: PRENATAL VITAMINS W/ FOLIC ACID TABLET (FP) PO SCH (10:01)
[2022-04-13] MEDS: NICOTINE 7 MG/24 HOURS TOPICAL PATCH TD SCH (10:01)
[2022-04-13] MEDS ORDERED: ATORVASTATIN CA 40 MG TABLET (FP) ONE (18:35)
[2022-04-13] MEDS: ATORVASTATIN CA 80 MG TABLET (FP) PO SCH (21:09)
[2022-04-13] MEDS: MELATONIN 5 MG TABLETS PO SCH (21:09)
[2022-04-13] MEDS: THIAMINE HCL 100 MG TABLET (FP) PO SCH (21:09)
[2022-04-13] MEDS: MIRTAZAPINE 15 MG TABLET (FP) PO SCH (21:09)
[2022-04-13] MEDS: INSULIN (LEVEMIR) 100 UNITS/ML UNITS SQ SCH (21:11)
[2022-04-14] MEDS: GABAPENTIN 100 MG CAPSULE PO SCH ×3 (06:23→21:15)
[2022-04-14] MEDS: LEVOTHYROXINE 100 MCG, LEVOTHYROXINE 75 MCG PO SCH (06:23)
[2022-04-14] MEDS: INSULIN SLIDING SCALE (NOVOLOG) 1 VIAL SQ SCH ×3 (06:53→16:29)
[2022-04-14] MEDS: amLODIPine BESYLATE 10 MG TABLET (FP) PO SCH (10:22)
[2022-04-14] MEDS: FAMOTIDINE 20 MG TABLET PO SCH ×2 (10:22→21:14)
[2022-04-14] MEDS: PRENATAL VITAMINS W/ FOLIC ACID TABLET (FP) PO SCH (10:22)
[2022-04-14] MEDS: NICOTINE 7 MG/24 HOURS TOPICAL PATCH TD SCH (10:23)
[2022-04-14] MEDS ORDERED: ATORVASTATIN CA 40 MG TABLET (FP) ONE (19:26)
[2022-04-14] MEDS: MELATONIN 5 MG TABLETS PO SCH (21:14)
[2022-04-14] MEDS: MIRTAZAPINE 15 MG TABLET (FP) PO SCH (21:14)
[2022-04-14] MEDS: THIAMINE HCL 100 MG TABLET (FP) PO SCH (21:14)
[2022-04-14] MEDS: ATORVASTATIN CA 80 MG TABLET (FP) PO SCH (21:15)
[2022-04-14] MEDS: INSULIN (LEVEMIR) 100 UNITS/ML UNITS SQ SCH (21:16)
[2022-04-15] MEDS: LEVOTHYROXINE 100 MCG, LEVOTHYROXINE 75 MCG PO SCH (06:43)
[2022-04-15] MEDS: GABAPENTIN 100 MG CAPSULE PO SCH ×3 (06:43→21:25)
[2022-04-15] MEDS: INSULIN SLIDING SCALE (NOVOLOG) 1 VIAL SQ SCH ×4 (06:45→17:11)
[2022-04-15] MEDS: NICOTINE 7 MG/24 HOURS TOPICAL PATCH TD SCH (10:08)
[2022-04-15] MEDS: FAMOTIDINE 20 MG TABLET PO SCH ×2 (10:08→21:26)
[2022-04-15] MEDS: amLODIPine BESYLATE 10 MG TABLET (FP) PO SCH (10:08)
[2022-04-15] MEDS: PRENATAL VITAMINS W/ FOLIC ACID TABLET (FP) PO SCH (10:08)
[2022-04-15] MEDS: IBUPROFEN 400 MG TABLET (FP) PO PRN (13:34)
[2022-04-15] MEDS ORDERED: INSULIN SLIDING SCALE (NOVOLOG) 1 VIAL SQ ONE (13:45)
[2022-04-15] MEDS ORDERED: ATORVASTATIN CA 40 MG TABLET (FP) ONE (19:10)
[2022-04-15] MEDS: ATORVASTATIN CA 80 MG TABLET (FP) PO SCH (21:25)
[2022-04-15] MEDS: INSULIN (LEVEMIR) 100 UNITS/ML UNITS SQ SCH (21:26)
[2022-04-15] MEDS: THIAMINE HCL 100 MG TABLET (FP) PO SCH (21:26)
[2022-04-15] MEDS: MELATONIN 5 MG TABLETS PO SCH (21:26)
[2022-04-15] MEDS: MIRTAZAPINE 15 MG TABLET (FP) PO SCH (21:26)
[2022-04-15] MEDS ORDERED: INSULIN (NOVOLOG) ASPART 100 UNITS/ML 10ML VIAL SQ ONE (21:50)
[2022-04-16] MEDS: GABAPENTIN 100 MG CAPSULE PO SCH ×3 (06:28→21:14)
[2022-04-16] MEDS: LEVOTHYROXINE 100 MCG, LEVOTHYROXINE 75 MCG PO SCH (06:28)
[2022-04-16] MEDS: INSULIN SLIDING SCALE (NOVOLOG) 1 VIAL SQ SCH ×3 (06:37→16:33)
[2022-04-16] MEDS: NICOTINE 7 MG/24 HOURS TOPICAL PATCH TD SCH (10:11)
[2022-04-16] MEDS: FAMOTIDINE 20 MG TABLET PO SCH ×2 (10:12→21:14)
[2022-04-16] MEDS: PRENATAL VITAMINS W/ FOLIC ACID TABLET (FP) PO SCH (10:12)
[2022-04-16] MEDS: amLODIPine BESYLATE 10 MG TABLET (FP) PO SCH (10:13)
[2022-04-16] MEDS ORDERED: INSULIN SLIDING SCALE (NOVOLOG) 1 VIAL SQ ONE (14:00)
[2022-04-16] MEDS ORDERED: ATORVASTATIN CA 40 MG TABLET (FP) ONE (18:29)
[2022-04-16] MEDS: MELATONIN 5 MG TABLETS PO SCH (21:14)
[2022-04-16] MEDS: MIRTAZAPINE 15 MG TABLET (FP) PO SCH (21:14)
[2022-04-16] MEDS: THIAMINE HCL 100 MG TABLET (FP) PO SCH (21:14)
[2022-04-16] MEDS: ATORVASTATIN CA 80 MG TABLET (FP) PO SCH (21:14)
[2022-04-16] MEDS: IBUPROFEN 400 MG TABLET (FP) PO PRN (21:15)
[2022-04-16] MEDS: INSULIN (LEVEMIR) 100 UNITS/ML UNITS SQ SCH (21:17)
[2022-04-17] MEDS: GABAPENTIN 100 MG CAPSULE PO SCH ×3 (06:33→21:19)
[2022-04-17] MEDS: LEVOTHYROXINE 100 MCG, LEVOTHYROXINE 75 MCG PO SCH (06:33)
[2022-04-17] MEDS: INSULIN SLIDING SCALE (NOVOLOG) 1 VIAL SQ SCH ×2 (06:40→10:12)
[2022-04-17] MEDS: NICOTINE 7 MG/24 HOURS TOPICAL PATCH TD SCH (10:07)
[2022-04-17] MEDS: PRENATAL VITAMINS W/ FOLIC ACID TABLET (FP) PO SCH (10:07)
[2022-04-17] MEDS: amLODIPine BESYLATE 10 MG TABLET (FP) PO SCH (10:07)
[2022-04-17] MEDS: FAMOTIDINE 20 MG TABLET PO SCH ×2 (10:07→21:19)
[2022-04-17] MEDS: IBUPROFEN 400 MG TABLET (FP) PO PRN (10:08)
[2022-04-17] MEDS ORDERED: ATORVASTATIN CA 40 MG TABLET (FP) ONE (18:48)
[2022-04-17] MEDS: ATORVASTATIN CA 80 MG TABLET (FP) PO SCH (21:19)
[2022-04-17] MEDS: MIRTAZAPINE 15 MG TABLET (FP) PO SCH (21:19)
[2022-04-17] MEDS: MELATONIN 5 MG TABLETS PO SCH (21:19)
[2022-04-17] MEDS: THIAMINE HCL 100 MG TABLET (FP) PO SCH (21:20)
[2022-04-17] MEDS: INSULIN (LEVEMIR) 100 UNITS/ML UNITS SQ SCH (21:21)
[2022-04-18] MEDS: LEVOTHYROXINE 100 MCG, LEVOTHYROXINE 75 MCG PO SCH (06:33)
[2022-04-18] MEDS: GABAPENTIN 100 MG CAPSULE PO SCH ×3 (06:33→21:17)
[2022-04-18] MEDS: INSULIN SLIDING SCALE (NOVOLOG) 1 VIAL SQ SCH ×3 (06:53→17:12)
[2022-04-18] MEDS: FAMOTIDINE 20 MG TABLET PO SCH ×2 (10:12→21:17)
[2022-04-18] MEDS: amLODIPine BESYLATE 10 MG TABLET (FP) PO SCH (10:12)
[2022-04-18] MEDS: NICOTINE 7 MG/24 HOURS TOPICAL PATCH TD SCH (10:12)
[2022-04-18] MEDS: PRENATAL VITAMINS W/ FOLIC ACID TABLET (FP) PO SCH (10:12)
[2022-04-18] MEDS ORDERED: INSULIN SLIDING SCALE (NOVOLOG) 1 VIAL SQ ONE (12:04)
[2022-04-18] MEDS ORDERED: ATORVASTATIN CA 20 MG TABLET (FP) ONE (18:30)
[2022-04-18] MEDS: MIRTAZAPINE 15 MG TABLET (FP) PO SCH (21:17)
[2022-04-18] MEDS: MELATONIN 5 MG TABLETS PO SCH (21:17)
[2022-04-18] MEDS: THIAMINE HCL 100 MG TABLET (FP) PO SCH (21:17)
[2022-04-18] MEDS: ATORVASTATIN CA 80 MG TABLET (FP) PO SCH (21:17)
[2022-04-18] MEDS: INSULIN (LEVEMIR) 100 UNITS/ML UNITS SQ SCH (21:19)
[2022-04-19] MEDS: LEVOTHYROXINE 100 MCG, LEVOTHYROXINE 75 MCG PO SCH (06:08)
[2022-04-19] MEDS: GABAPENTIN 100 MG CAPSULE PO SCH ×3 (06:09→21:05)
[2022-04-19] MEDS: INSULIN SLIDING SCALE (NOVOLOG) 1 VIAL SQ SCH ×3 (07:05→16:28)
[2022-04-19] MEDS: NICOTINE 7 MG/24 HOURS TOPICAL PATCH TD SCH (09:56)
[2022-04-19] MEDS: PRENATAL VITAMINS W/ FOLIC ACID TABLET (FP) PO SCH (09:56)
[2022-04-19] MEDS: amLODIPine BESYLATE 10 MG TABLET (FP) PO SCH (09:56)
[2022-04-19] MEDS: FERROUS SO4 325 MG TABLET (FP) PO SCH ×2 (09:56→21:06)
[2022-04-19] MEDS: FAMOTIDINE 20 MG TABLET PO SCH ×2 (09:56→21:06)
[2022-04-19] MEDS ORDERED: ATORVASTATIN CA 40 MG TABLET (FP) ONE (19:08)
[2022-04-19] MEDS: THIAMINE HCL 100 MG TABLET (FP) PO SCH (21:05)
[2022-04-19] MEDS: MELATONIN 5 MG TABLETS PO SCH (21:05)
[2022-04-19] MEDS: MIRTAZAPINE 15 MG TABLET (FP) PO SCH (21:05)
[2022-04-19] MEDS: INSULIN (LEVEMIR) 100 UNITS/ML UNITS SQ SCH (21:09)
[2022-04-19] MEDS: ATORVASTATIN CA 80 MG TABLET (FP) PO SCH (21:09)
[2022-04-20] MEDS: LEVOTHYROXINE 100 MCG, LEVOTHYROXINE 75 MCG PO SCH (05:58)
[2022-04-20] MEDS: GABAPENTIN 100 MG CAPSULE PO SCH ×3 (06:00→21:49)
[2022-04-20] MEDS: INSULIN SLIDING SCALE (NOVOLOG) 1 VIAL SQ SCH ×3 (07:05→16:57)
[2022-04-20] MEDS: FAMOTIDINE 20 MG TABLET PO SCH ×2 (10:00→21:49)
[2022-04-20] MEDS: FERROUS SO4 325 MG TABLET (FP) PO SCH ×2 (10:00→21:49)
[2022-04-20] MEDS: NICOTINE 7 MG/24 HOURS TOPICAL PATCH TD SCH (10:00)
[2022-04-20] MEDS: amLODIPine BESYLATE 10 MG TABLET (FP) PO SCH (10:00)
[2022-04-20] MEDS: PRENATAL VITAMINS W/ FOLIC ACID TABLET (FP) PO SCH (10:00)
[2022-04-20] MEDS ORDERED: INSULIN (NOVOLOG) ASPART 100 UNITS/ML 10ML VIAL SQ ONE ×2 (16:48→21:45)
[2022-04-20] MEDS ORDERED: ATORVASTATIN CA 40 MG TABLET (FP) ONE (20:55)
[2022-04-20] MEDS: INSULIN (LEVEMIR) 100 UNITS/ML UNITS SQ SCH (21:48)
[2022-04-20] MEDS: MELATONIN 5 MG TABLETS PO SCH (21:48)
[2022-04-20] MEDS: THIAMINE HCL 100 MG TABLET (FP) PO SCH (21:49)
[2022-04-20] MEDS: MIRTAZAPINE 15 MG TABLET (FP) PO SCH (21:49)
[2022-04-20] MEDS: ATORVASTATIN CA 80 MG TABLET (FP) PO SCH (21:49)
[2022-04-21] MEDS: GABAPENTIN 100 MG CAPSULE PO SCH ×3 (06:26→21:01)
[2022-04-21] MEDS: LEVOTHYROXINE 100 MCG, LEVOTHYROXINE 75 MCG PO SCH (06:26)
[2022-04-21] MEDS: INSULIN SLIDING SCALE (NOVOLOG) 1 VIAL SQ SCH ×3 (06:44→16:38)
[2022-04-21] MEDS: FAMOTIDINE 20 MG TABLET PO SCH ×2 (09:51→21:00)
[2022-04-21] MEDS: NICOTINE 7 MG/24 HOURS TOPICAL PATCH TD SCH (09:51)
[2022-04-21] MEDS: amLODIPine BESYLATE 10 MG TABLET (FP) PO SCH (09:51)
[2022-04-21] MEDS: PRENATAL VITAMINS W/ FOLIC ACID TABLET (FP) PO SCH (09:51)
[2022-04-21] MEDS: FERROUS SO4 325 MG TABLET (FP) PO SCH ×2 (09:51→21:00)
[2022-04-21] MEDS ORDERED: ATORVASTATIN CA 40 MG TABLET (FP) ONE (18:41)
[2022-04-21] MEDS: ATORVASTATIN CA 80 MG TABLET (FP) PO SCH (21:00)
[2022-04-21] MEDS: MIRTAZAPINE 15 MG TABLET (FP) PO SCH (21:00)
[2022-04-21] MEDS: MELATONIN 5 MG TABLETS PO SCH (21:00)
[2022-04-21] MEDS: THIAMINE HCL 100 MG TABLET (FP) PO SCH (21:00)
[2022-04-21] MEDS: INSULIN (LEVEMIR) 100 UNITS/ML UNITS SQ SCH (21:01)
[2022-04-22] MEDS: LEVOTHYROXINE 100 MCG, LEVOTHYROXINE 75 MCG PO SCH (06:12)
[2022-04-22] MEDS: GABAPENTIN 100 MG CAPSULE PO SCH ×3 (06:12→21:00)
[2022-04-22] MEDS: INSULIN SLIDING SCALE (NOVOLOG) 1 VIAL SQ SCH ×4 (06:56→17:24)
[2022-04-22] MEDS: FERROUS SO4 325 MG TABLET (FP) PO SCH ×2 (10:31→21:00)
[2022-04-22] MEDS: PRENATAL VITAMINS W/ FOLIC ACID TABLET (FP) PO SCH (10:31)
[2022-04-22] MEDS: FAMOTIDINE 20 MG TABLET PO SCH ×2 (10:31→21:00)
[2022-04-22] MEDS: NICOTINE 7 MG/24 HOURS TOPICAL PATCH TD SCH (10:31)
[2022-04-22] MEDS: amLODIPine BESYLATE 10 MG TABLET (FP) PO SCH (10:31)
[2022-04-22] MEDS ORDERED: ATORVASTATIN CA 40 MG TABLET (FP) ONE (18:40)
[2022-04-22] MEDS: MIRTAZAPINE 15 MG TABLET (FP) PO SCH (21:00)
[2022-04-22] MEDS: MELATONIN 5 MG TABLETS PO SCH (21:00)
[2022-04-22] MEDS: THIAMINE HCL 100 MG TABLET (FP) PO SCH (21:00)
[2022-04-22] MEDS: ATORVASTATIN CA 80 MG TABLET (FP) PO SCH (21:00)
[2022-04-22] MEDS: INSULIN (LEVEMIR) 100 UNITS/ML UNITS SQ SCH (21:01)
[2022-04-23] MEDS: LEVOTHYROXINE 100 MCG, LEVOTHYROXINE 75 MCG PO SCH (05:59)
[2022-04-23] MEDS: GABAPENTIN 100 MG CAPSULE PO SCH ×3 (06:00→20:59)
[2022-04-23] MEDS: INSULIN SLIDING SCALE (NOVOLOG) 1 VIAL SQ SCH ×3 (06:42→16:54)
[2022-04-23] MEDS: PRENATAL VITAMINS W/ FOLIC ACID TABLET (FP) PO SCH (10:09)
[2022-04-23] MEDS: FAMOTIDINE 20 MG TABLET PO SCH ×2 (10:10→20:59)
[2022-04-23] MEDS: FERROUS SO4 325 MG TABLET (FP) PO SCH ×2 (10:10→20:59)
[2022-04-23] MEDS: amLODIPine BESYLATE 10 MG TABLET (FP) PO SCH (10:10)
[2022-04-23] MEDS: NICOTINE 7 MG/24 HOURS TOPICAL PATCH TD SCH (10:11)
[2022-04-23] MEDS ORDERED: ATORVASTATIN CA 40 MG TABLET (FP) ONE (19:11)
[2022-04-23] MEDS: THIAMINE HCL 100 MG TABLET (FP) PO SCH (20:59)
[2022-04-23] MEDS: INSULIN (LEVEMIR) 100 UNITS/ML UNITS SQ SCH (20:59)
[2022-04-23] MEDS: ATORVASTATIN CA 80 MG TABLET (FP) PO SCH (21:00)
[2022-04-23] MEDS: MELATONIN 5 MG TABLETS PO SCH (21:00)
[2022-04-23] MEDS: MIRTAZAPINE 15 MG TABLET (FP) PO SCH (21:00)
[2022-04-24] MEDS: GABAPENTIN 100 MG CAPSULE PO SCH ×3 (06:20→21:00)
[2022-04-24] MEDS: LEVOTHYROXINE 100 MCG, LEVOTHYROXINE 75 MCG PO SCH (06:21)
[2022-04-24] MEDS: MAG HYDROX/AL HYDROX/SIMETH 30 ML UNIT-DOSE CUP PO PRN (06:39)
[2022-04-24] MEDS: INSULIN SLIDING SCALE (NOVOLOG) 1 VIAL SQ SCH ×3 (06:52→16:58)
[2022-04-24] MEDS: FAMOTIDINE 20 MG TABLET PO SCH ×2 (10:14→21:00)
[2022-04-24] MEDS: FERROUS SO4 325 MG TABLET (FP) PO SCH ×2 (10:14→21:01)
[2022-04-24] MEDS: PRENATAL VITAMINS W/ FOLIC ACID TABLET (FP) PO SCH (10:14)
[2022-04-24] MEDS: amLODIPine BESYLATE 10 MG TABLET (FP) PO SCH (10:14)
[2022-04-24] MEDS: NICOTINE 7 MG/24 HOURS TOPICAL PATCH TD SCH (10:15)
[2022-04-24] MEDS ORDERED: ATORVASTATIN CA 40 MG TABLET (FP) ONE (19:11)
[2022-04-24] MEDS: ATORVASTATIN CA 80 MG TABLET (FP) PO SCH (21:00)
[2022-04-24] MEDS: MIRTAZAPINE 15 MG TABLET (FP) PO SCH (21:00)
[2022-04-24] MEDS: MELATONIN 5 MG TABLETS PO SCH (21:01)
[2022-04-24] MEDS: THIAMINE HCL 100 MG TABLET (FP) PO SCH (21:01)
[2022-04-24] MEDS: INSULIN (LEVEMIR) 100 UNITS/ML UNITS SQ SCH (21:02)
[2022-04-25] MEDS: LEVOTHYROXINE 100 MCG, LEVOTHYROXINE 75 MCG PO SCH (06:14)
[2022-04-25] MEDS: GABAPENTIN 100 MG CAPSULE PO SCH ×3 (06:15→20:59)
[2022-04-25] MEDS: INSULIN SLIDING SCALE (NOVOLOG) 1 VIAL SQ SCH ×3 (06:42→17:25)
[2022-04-25] MEDS: PRENATAL VITAMINS W/ FOLIC ACID TABLET (FP) PO SCH (11:19)
[2022-04-25] MEDS: amLODIPine BESYLATE 10 MG TABLET (FP) PO SCH (11:19)
[2022-04-25] MEDS: FERROUS SO4 325 MG TABLET (FP) PO SCH ×2 (11:19→21:00)
[2022-04-25] MEDS: FAMOTIDINE 20 MG TABLET PO SCH ×2 (11:19→20:59)
[2022-04-25] MEDS: NICOTINE 7 MG/24 HOURS TOPICAL PATCH TD SCH (11:19)
[2022-04-25] MEDS ORDERED: INSULIN (NOVOLOG) ASPART 100 UNITS/ML 10ML VIAL SQ ONE (15:08)
[2022-04-25] MEDS: MIRTAZAPINE 15 MG TABLET (FP) PO SCH (21:00)
[2022-04-25] MEDS: MELATONIN 5 MG TABLETS PO SCH (21:00)
[2022-04-25] MEDS: THIAMINE HCL 100 MG TABLET (FP) PO SCH (21:00)
[2022-04-25] MEDS: INSULIN (LEVEMIR) 100 UNITS/ML UNITS SQ SCH (21:00)
[2022-04-25] MEDS: ATORVASTATIN CA 80 MG TABLET (FP) PO SCH (21:00)
[2022-04-26] MEDS: LEVOTHYROXINE 100 MCG, LEVOTHYROXINE 75 MCG PO SCH (06:03)
[2022-04-26] MEDS: GABAPENTIN 100 MG CAPSULE PO SCH ×3 (06:04→21:25)
[2022-04-26] MEDS: INSULIN SLIDING SCALE (NOVOLOG) 1 VIAL SQ SCH ×3 (07:05→16:29)
[2022-04-26] MEDS ORDERED: INSULIN SLIDING SCALE (NOVOLOG) 1 VIAL SQ ONE ×2 (07:08→12:24)
[2022-04-26] MEDS: MAG HYDROX/AL HYDROX/SIMETH 30 ML UNIT-DOSE CUP PO PRN (07:09)
[2022-04-26 09:05] VITALS: PULSE 79; RESP 18
[2022-04-26] MEDS: FAMOTIDINE 20 MG TABLET PO SCH ×2 (09:57→21:25)
[2022-04-26] MEDS: amLODIPine BESYLATE 10 MG TABLET (FP) PO SCH (09:57)
[2022-04-26] MEDS: FERROUS SO4 325 MG TABLET (FP) PO SCH ×2 (09:57→21:25)
[2022-04-26] MEDS: PRENATAL VITAMINS W/ FOLIC ACID TABLET (FP) PO SCH (09:57)
[2022-04-26] MEDS: NICOTINE 7 MG/24 HOURS TOPICAL PATCH TD SCH (09:57)
[2022-04-26] MEDS ORDERED: ATORVASTATIN CA 40 MG TABLET (FP) ONE (18:33)
[2022-04-26] MEDS: MELATONIN 5 MG TABLETS PO SCH (21:25)
[2022-04-26] MEDS: MIRTAZAPINE 15 MG TABLET (FP) PO SCH (21:25)
[2022-04-26] MEDS: ATORVASTATIN CA 80 MG TABLET (FP) PO SCH (21:25)
[2022-04-26] MEDS: INSULIN (LEVEMIR) 100 UNITS/ML UNITS SQ SCH (21:25)
[2022-04-26] MEDS: THIAMINE HCL 100 MG TABLET (FP) PO SCH (21:25)
[2022-04-27] MEDS: GABAPENTIN 100 MG CAPSULE PO SCH (06:17)
[2022-04-27] MEDS: LEVOTHYROXINE 100 MCG, LEVOTHYROXINE 75 MCG PO SCH (06:17)
[2022-04-27 07:12] VITALS: BP 117/66; TEMP 97.5
[2022-04-27] MEDS: INSULIN SLIDING SCALE (NOVOLOG) 1 VIAL SQ SCH (07:36)
== END 2022-04-27 10:44 | disposition left against medical advice (07) | DRG 770 ==
LOC: YASAS 10:23 → Y3E 15:54 → Y3W 17:43
PROVIDERS: ADMIT Allergy & Immunology; ATTEND Psychiatry & Neurology Pain Medicine
PROC: HZ42ZZZ Group Counseling for Substance Abuse Treatment, Cognitive-Behavioral (ICD-10-PCS; principal; 2022-04-07)
DX: F14.20 Cocaine dependence, uncomplicated (principal); F12.20 Cannabis dependence, uncomplicated; F17.210 Nicotine dependence, cigarettes, uncomplicated; F19.24 Other psychoactive substance dependence with psychoactive substance-induced mood disorder; F31.9 Bipolar disorder, unspecified; E03.9 Hypothyroidism, unspecified; G47.00 Insomnia, unspecified; J44.9 Chronic obstructive pulmonary disease, unspecified; J45.20 Mild intermittent asthma, uncomplicated; M54.41 Lumbago with sciatica, right side; G89.29 Other chronic pain; E11.9 Type 2 diabetes mellitus without complications; Z79.84 Long term (current) use of oral hypoglycemic drugs; I69.854 Hemiplegia and hemiparesis following other cerebrovascular disease affecting left non-dominant side; Z99.89 Dependence on other enabling machines and devices; F91.8 Other conduct disorders; Z91.199 Patient's noncompliance with other medical treatment and regimen due to unspecified reason; Z28.310 Unvaccinated for COVID-19; Z28.9 Immunization not carried out for unspecified reason
CPT/HCPCS: 36415; 80053; 81003; 82962; 85027; 86780; 86803; 93005; 93010; C9803-CS; U0003; U0005

== ENCOUNTER 2022-04-08 16:50 | Emergency (ER) | payer OTHER ==
[2022-04-08 17:12] VITALS: RESP 18; TEMP 98.2; BMI 20.9
[2022-04-08] MEDS ORDERED: ACETAMINOPHEN 325 MG TABLET (FP) PO ONE (21:28)
[2022-04-08] MEDS ORDERED: ACETAMINOPHEN 325 MG TABLET (FP) ONE (21:29)
[2022-04-08 22:29] VITALS: BP 122/83; PULSE 72
== END 2022-04-08 22:29 | disposition home or self-care (01) ==
LOC: JER 16:50
DX: S09.90XA Unspecified injury of head, initial encounter (principal); S06.0X9A Concussion with loss of consciousness of unspecified duration, initial encounter; R51.9 Headache, unspecified; M25.511 Pain in right shoulder; W01.0XXA Fall on same level from slipping, tripping and stumbling without subsequent striking against object, initial encounter
CPT/HCPCS: 70450-TC; 72125-TC; 82962; 93005; 93010; 99285-25